=== PATIENT | male | born 1995 | race Caucasian/White ===

== ENCOUNTER 2021-08-27 12:48 | Emergency (ER) | payer OTHER, SELFPAY ==
[2021-08-27 12:57] VITALS: BP 138/67; PULSE 66; TEMP 97.5; BMI 22.4
== END 2021-08-27 13:40 | disposition home or self-care (01) ==
LOC: JER 12:48
DX: Z11.52 Encounter for screening for COVID-19 (principal)
CPT/HCPCS: 99283-25; C9803-CS; U0003; U0005